=== PATIENT | male | born 1965 | race Caucasian/White ===

== ENCOUNTER 2023-12-30 13:17 | Emergency (ER) | payer OTHER, SELFPAY ==
[2023-12-30 13:21] VITALS: BP 150/103
--- NOTE | 2023-12-30 15:16 | ED.GENMED ---
History of Present Illness
General
Chief Complaint: Skin Surface Trauma
Source: patient
Exam Limitations: none
Time Seen by Provider: 12/30/23 13:56
Nursing documentation reviewed up to this point in time: agreed with
History of Present Illness
History of Present Illness:
58 y/o M with right hand dominant
here with L index finger laceration from a miter saw today
he said the tissue was flipped over so he flipped it back
he has full ROM
sensation intact
tetanus outdated
Review of Systems
Review of Systems
Allergies reviewed?: Yes
All Other Systems: Not applicable
Phy Exam
Physical Exam
Physical Exam:
GENERAL: Alert , in no apparent distress, comfortable at rest
HEAD: NCAT
CV: 2+ DP PULSES B/L
NEUROLOGICAL: Alert and oriented, no focal neuro deficits, , 5/5 strength, sensation intact, ambulation slight limp right leg
SKIN: Warm and dry, irregular laceration to fat pad of L index finger obliquely oriented
MUSCULOSKELETAL: L index fingertip laceration
full rom
sensation intact
PSYCH: Normal and appropriate interaction.
Course
Orders/Labs/Results
Orders:
Orders
12/30/23 14:43
Tetanus/Diphth/Acelpertussis [Adacel] 0.5 ml IM .ONCE ONE
Finger(s)/Thumb 2 View Lt [CR Finger(s)/thumb Min 2 Vw Lt] Urgent
Comment:
Reason For Exam: left index finger laceration with sawa
12/30/23 15:16
Cephalexin Monohydrate [Keflex] 500 mg PO NOW STA
Vital Signs
Initial and Last Documented VS:
Initial Vital Signs
Temp Pulse Resp BP Pulse Ox
98.4 F 81 16 150/103 100
12/30/23 13:21 12/30/23 13:21 12/30/23 13:21 12/30/23 13:21 12/30/23 13:21
Last Documented Vital Signs
Temp Pulse Resp BP Pulse Ox
98.4 F 82 18 150/103 100
12/30/23 13:21 12/30/23 16:06 12/30/23 16:06 12/30/23 13:21 12/30/23 16:06
Procedures
Laceration Closure
Left Distal Palmar Second Finger:
Status of Wound: clean
Size of Wound in cm: 2.5
Description of Wound Edges: ragged, flap-poorly vascularized and macerated
Preparation: cleaned with saline
Anesthesia: 1% Lidocaine and Digital-Regional
Revision/Debridement: minor revision and irrigate-direct pressure
Wound exploration: explored to base- no FB
Type of Closure: single layer closure
Skin Closure Material: 5-0 nylon
Number of sutures: 6
MDM/Problems Addressed
Differential Diagnosis Includes:
open fracture, laceration
MDM/Problems Addressed:
58 y/o R hand dominant M
L index finger laceratino from a miter saw
has full rom and sensation
macerated irregular fat pad laceratino
no tendon injury suspected based on exam
wound anesthetized, irrigated and repaired
bacitracin dressing applied
f/u hand encouraged after xray indep reviewed by me showing tuft fx
keflex
tetanus.
*Critical Care Note
Total Time (30-74mins, 75-104mins- exclusive of procedures): Not Applicable
ED Attending Note
-
Portions of this chart may have been created with voice recognition software.� Occasional wrong word or��sound alike� substitutions may have occurred due to the inherent limitations of voice recognition software.
Discharge Plan
Departure
Patient Disposition: Home (Routine Discharge)
Date of Disposition: 12/30/23
Time of Disposition: 16:05
Patient with high blood pressure during this ER visit?: Yes
Condition: Fair
Covid-19: Not Applicable
Discharge Problem:
Laceration of finger, tuft fracture open
Instructions: Laceration Repair With Stitches (DC), BLOOD PRESSURE
Prescriptions:
New
cephalexin 500 mg capsule
500 mg PO Q8H Qty: 21 0RF
No Action
multivitamin 1 EACH tablet
1 ea PO DAILY
aspirin 81 MG tablet,delayed release (DR/EC)
81 mg PO DAILY
albuterol sulfate 18 GM HFA aerosol inhaler
2 puff inhalation PRN PRN (Reason: SOB)
fish oil-dha-epa 1 EACH capsule
1 ea PO DAILY
coenzyme [id number] E 1 CAP capsule
1 cap PO DAILY
Referrals:
Tod Lowery MD [Active] - Follow up in 2-3 days (hand doctor baldemar)
Manuel Castro MD [Active] - Follow up in 2-3 days (hand doctor)
Manuel Gee MD [Family Provider] -
Activity Restrictions/Additional Instructions:
KEEP THE WOUND CLEAN AND DRY FOR 24 HOURS
AFTER THAT YOU CAN GET IT WET IN THE BATH/SHOWER ONCE A DAY AND MAKE SURE IT IS CLEAN AND THERE IS NO DRIED BLOOD ON THE STITCHES
APPLY NEOSPORIN AND A BANDAID
THE STITCHES NEED TO BE REMOVED IN ABOUT 7-10 DAYS, SEE YOUR DOCTOR FOR THIS.
YOU ALSO SHOULD SEE A HAND SPECIALIST
THERE WAS A SMALL CHIP OF BONE OF YOUR DISTAL PHALANX
TAKE KEFLEX 3 TIMES A DAY FO R7 DAYS TO PREVENT INFECTION
THE LAST DAY BEFORE STITCHES OUT, NO OINTMENT, LEAVE OPEN TO AIR
WATCH FOR SIGNS OF INFECTION AND RETURN NEEDED FOR PAIN, SWELLING, REDNESS, DRAINAGE, BLEEDING.
MOTRIN NEEDED FOR PAIN.
Interventions
Interventions:
*Risk Screen - Suicide Last Done: 12/30/23 13:21
*Neglect/Abuse Screening Last Done: 12/30/23 13:21
ED- Fall Risk Assessment Last Done: 12/30/23 14:25
*Nursing Disposition Last Done: 12/30/23 16:07
ED-Skin Assessment Last Done: 12/30/23 14:25
Discharge Date and Time
Discharge Date/Time: 12/30/23 16:07
Print Language: CHINESE
[2023-12-30] MEDS: KEFLEX 500 MG PO (15:38)
[2023-12-30] MEDS: ADACEL 0.5 ML IM (15:38)
== END 2023-12-30 16:07 | disposition home or self-care (01) ==
LOC: EMR 13:17
PROVIDERS: EMERGENCY PHYSICIAN Emergency Medicine; FAMILY PHYSICIAN Family Medicine
DX: S62.661B Nondisplaced fracture of distal phalanx of left index finger, initial encounter for open fracture (principal); W27.0XXA Contact with workbench tool, initial encounter; R03.0 Elevated blood-pressure reading, without diagnosis of hypertension; Z23 Encounter for immunization
CPT/HCPCS: 99283; 90471; 12001; 73140; 90715